=== PATIENT | male | born 1950 | race Caucasian/White ===

== ENCOUNTER → 2016-11-05 | Outpatient (CLI) | payer MEDICARE, MEDICAID ==
[~2016-11-05] MED LIST: AMBIEN5 MG PO; AMLODIPINE5 MG PO; ANAPROX DS550 MG PO; ATENOLOL100 MG; ATENOLOL100 MG PO; ATIVAN0.5 MG; ATIVAN0.5 MG PO; ATIVAN1 MG PO; CARBIDOPA PO; CHLORTHALIDONE25 MG PO; COLACE100 MG PO; COUMADIN5 M2; Depakote ER500 MG PO; ESIDREX,ORETIC,25 MG PO; EXELON4.6 MG/24 TD; LISINOPRIL10 MG PO; MIRALAX17 GM/DOSE PO; OMEGA 31000 MG; PAMELOR50 MG PO; PAROXETINE40 MG PO; PRINIVIL10 MG; RANITIDINE150 MG PO; REQUIP1 MG; REQUIP1 MG PO; SEROQUEL300 MG PO; SINEMET 25-2501 TAB; SINEMET PO; STALEVO PO; SYMMETREL100 MG PO; VICO10300 PO; VICODIN 500 MG-1 TAB PO; [UNRECOGNIZED DRUG - OTHER] PO
[2016-11-05 10:47] LABS: BASO # 0.1 10*3/uL (0.0-0.1); BASO % 1.3 % (0.0-1.0); EOS # 0.1 10*3/uL (0.0-0.4); EOS % 1.9 % (1.0-4.0); HEMATOCRIT 46.5 % (42.0-52.0); LYMPH # 2.7 10*3/uL (1.3-4.4); LYMPH % 37.6 % (27.0-41.0); MEAN CELL VOLUME 98.7 fl (80.0-94.0); MEAN CORPUSCULAR HGB CONC 34.4 g/dl (33.0-37.0); MONO # 0.7 10*3/uL (0.1-1.0); MONO % 9.5 % (3.0-9.0); NEUT # 3.6 10*3/uL (2.3-7.9); NEUT % 49.4 % (47.0-73.0); PLATELET COUNT AUTOMATED 188 10*3/uL (130-400); RED BLOOD COUNT 4.71 10*6/uL (4.50-5.90); RED CELL DISTRI WIDTH 12.2 % (0-14.5); WHITE BLOOD COUNT 7.2 10*3/uL (4.8-10.8)
[2016-11-05 11:15] LABS: ALBUMIN 3.8 gm/dl (3.1-4.5); ALKALINE PHOSPHATASE 65 U/L (45-117); BUN 21 mg/dl (7-24); CARBON DIOXIDE 34 mmol/L (21-32); CHLORIDE 101 mmol/L (98-107); CHOLESTEROL 165 mg/dL (<200); EST GLOM FILT AFRICAN AMERICAN > 60 ml/min; GLUCOSE 81 mg/dL (65-99); HDL CHOLESTEROL 43 mg/dl (40-60); LDL CHOLESTEROL 62 mg/dL (9-159); POTASSIUM 4.4 mmol/L (3.5-5.1); SGOT/AST 21 IU/L (3-35); SGPT/ALT 26 U/L (12-78); SODIUM 140 mmol/L (136-145); TOTAL PROTEIN 7.5 gm/dL (6.4-8.2); TRIGLYCERIDES 299 mg/dl (<150); VLDL CHOLESTEROL 60 mg/dL (6-40)
== END | disposition home or self-care (01) ==
LOC: LAB 10:30
PROVIDERS: Family Medicine
DX: Z12.5 Encounter for screening for malignant neoplasm of prostate (principal); Z00.01 Encounter for general adult medical examination with abnormal findings; I10 Essential (primary) hypertension; G20 Parkinson's disease; I48.1 Persistent atrial fibrillation; F25.9 Schizoaffective disorder, unspecified; E78.5 Hyperlipidemia, unspecified; E55.9 Vitamin D deficiency, unspecified; R06.02 Shortness of breath

== ENCOUNTER → 2016-11-16 | Outpatient (CLI) | payer MEDICARE, MEDICAID | END | disposition home or self-care (01) | LOC: US 10-07 09:30 | DX: Z13.6 Encounter for screening for cardiovascular disorders (principal) ==

== ENCOUNTER 2017-03-08 18:22 | Emergency (ER) | payer MEDICARE, MEDICAID ==
[~2017-03-08] VITALS: Wt 81.6 kg
== END 2017-03-08 20:31 | disposition home or self-care (01) ==
LOC: ED 18:22
DX: S20.212A Contusion of left front wall of thorax, initial encounter (principal); R03.0 Elevated blood-pressure reading, without diagnosis of hypertension; Z88.6 Allergy status to analgesic agent; Z88.8 Allergy status to other drugs, medicaments and biological substances; Z79.899 Other long term (current) drug therapy; W18.39XA Other fall on same level, initial encounter; Y93.89 Activity, other specified; Y92.89 Other specified places as the place of occurrence of the external cause; Y99.8 Other external cause status

== ENCOUNTER → 2017-08-25 | Outpatient (CLI) | payer MEDICARE, MEDICAID ==
[2017-08-25 08:47] LABS: ALBUMIN 3.7 gm/dl (3.1-4.5); ALKALINE PHOSPHATASE 67 U/L (45-117); BUN 23 mg/dl (7-24); CHLORIDE 102 mmol/L (98-107); CHOLESTEROL 151 mg/dL (<200); CREATININE 0.99 mg/dL (0.70-1.30); HDL CHOLESTEROL 39 mg/dl (40-60); LDL CHOLESTEROL 64 mg/dL (9-159); POTASSIUM 3.6 mmol/L (3.5-5.1); SGOT/AST 15 IU/L (3-35); SGPT/ALT 17 U/L (12-78); SODIUM 139 mmol/L (136-145); TOTAL PROTEIN 7.2 gm/dL (6.4-8.2); TRIGLYCERIDES 242 mg/dl (<150); VLDL CHOLESTEROL 48 mg/dL (6-40)
[2017-08-25 08:52] LABS: HEMATOCRIT 44.3 % (42.0-52.0); HEMOGLOBIN 15.7 g/dl (14.0-18.0); MEAN CELL VOLUME 96.3 fl (80.0-94.0); MEAN CORPUSCULAR HGB 34.1 pg (27.0-31.0); MEAN CORPUSCULAR HGB CONC 35.4 g/dl (33.0-37.0); MEAN PLATELET VOLUME 10.3 fl (9.6-12.3); RED BLOOD COUNT 4.6 10*6/uL (4.50-5.90); RED CELL DISTRI WIDTH 12.7 % (0-14.5); WHITE BLOOD COUNT 7.1 10*3/uL (4.8-10.8)
== END | disposition home or self-care (01) ==
LOC: LAB 07:58
PROVIDERS: Registered Nurse Flight
DX: I48.91 Unspecified atrial fibrillation (principal); E78.5 Hyperlipidemia, unspecified; M17.11 Unilateral primary osteoarthritis, right knee; E55.9 Vitamin D deficiency, unspecified

== ENCOUNTER 2018-09-07 19:21 | Inpatient (IN) | payer MEDICARE, MEDICAID ==
[~2018-09-07] VITALS: Ht 172.7 cm; Wt 84.0 kg
--- NOTE | ~2018-09-07 | O ---
[place], [place] OPERATIVE NOTE NAME: LYNDSAY FORBES [facility] #: [id number] UNIT #: [id number] ROOM: 511 DOCTOR: FINESSE VU MD BIRTHDATE: [birth year] DOS: 09/08/2018 PREOPERATIVE DIAGNOSIS: Acute appendicitis. POSTOPERATIVE DIAGNOSIS: Acute appendicitis. PROCEDURE: Laparoscopic appendectomy. SURGEON: Finesse Vu MD INSIDE SALES DIRECTOR: KARI. ANESTHESIA: General with endotracheal intubation. INDICATIONS: This is a 68-year-old gentleman admitted with right lower quadrant abdominal pain and was found to have acute appendicitis. It was decided to take the patient to the operating room for a laparoscopic appendectomy. The procedure and its complications were explained to the patient in detail preoperatively. Complications that were discussed included but were not limited to bleeding, infection, hematoma/seroma/abscess formation, prolonged postoperative pain, damage to lying vital structures, inadvertent injury to surrounding vital structures and he agreed to proceed. DESCRIPTION OF PROCEDURE: After identifying the patient, the patient was brought to the operating suite and laid in the supine position. After time-out procedure was called, general anesthesia was induced and a Acosta catheter was placed in urinary bladder. The parts were then painted and draped in the usual sterile fashion. An incision was made below the umbilicus. The skin and the subcutaneous tissue were incised in the line of the incision. The fascia was incised and 2 stay sutures with 0 Vicryl were taken on either side. Under direct vision, a left lower quadrant incision of 12 mm and a 5 mm incision was made in the suprapubic region and appropriate size ports were introduced. The patient was placed in a Trendelenburg right side up position. The appendix was found to be inflamed. It was dissected with blunt dissection from the surrounding structures and after the base was identified, it was stapled across with the help of an endovascular CORRINE stapler. The appendix was then placed in an EndoCatch bag and removed from the peritoneal cavity and sent for histopathological diagnosis. Hemostasis was confirmed and saline was used for irrigation. After hemostasis was confirmed again the suprapubic and the left lower quadrant ports were removed under direct vision and there was no bleeding seen. The umbilical port was also removed. The 2 stay sutures were tied together and an additional 0 Vicryl suture were taken to close the fascial incision. The edges of the skin were infiltrated with 1% plain lidocaine and approximated with the help of 4-0 Vicryl in a subcuticular running fashion. The Acosta catheter was removed. The patient was extubated uneventfully and brought back to the recovery room in a stable fashion. There were no complications. Dr. Finesse Vu, the attending surgeon, was present throughout the operating case. [place], [place] OPERATIVE NOTE NAME: LYNDSAY FORBES UNIT #: [id number] ROOM: [facility] DOCTOR: FINESSE VU MD BIRTHDATE: [birth year] Finesse Vu MD CM:OPRECORD:OPERATIVE NOTE 1027 [id number] FINESSE VU MD 09/08/18 1049 interface
[2018-09-07 19:21] VITALS: BP 133/73
[2018-09-07 20:21] LABS: HEMATOCRIT 44.2 % (42.0-52.0); HEMOGLOBIN 15.6 g/dl (14.0-18.0); MEAN CELL VOLUME 98.9 fl (80.0-94.0); MEAN CORPUSCULAR HGB 34.9 pg (27.0-31.0); MEAN CORPUSCULAR HGB CONC 35.3 g/dl (33.0-37.0); MEAN PLATELET VOLUME 9.9 fl (9.6-12.3); PLATELET COUNT AUTOMATED 175 10*3/uL (130-400); RED BLOOD COUNT 4.47 10*6/uL (4.50-5.90); RED CELL DISTRI WIDTH 12.4 % (0-14.5); WHITE BLOOD COUNT 8.1 10*3/uL (4.8-10.8)
[2018-09-07 20:48] LABS: TOTAL CELLS COUNTED 100 #CELLS
[2018-09-07 20:49] LABS: OVALOCYTES FEW; PLATELET SUFFICIENCY NORMAL (NORMAL); VACUOLATION OF NEUTROPHILS MODERATE
--- NOTE | 2018-09-07 20:49 | NUR ---
PT GIVEN URINAL AWARE WE NEED URINE SAMPLE
[2018-09-07 20:50] LABS: ALBUMIN 3.4 gm/dl (3.1-4.5); ALKALINE PHOSPHATASE 88 U/L (45-117); BUN 24 mg/dl (7-24); CHLORIDE 102 mmol/L (98-107); CREATININE 1.31 mg/dL (0.70-1.30); LIPASE 78 U/L (73-393); POTASSIUM 3.8 mmol/L (3.5-5.1); SGOT/AST 19 IU/L (3-35); SGPT/ALT 14 U/L (12-78); SODIUM 137 mmol/L (136-145); TOTAL PROTEIN 7.3 gm/dL (6.4-8.2)
[2018-09-07 20:56] LABS: BILIRUBIN NEGATIVE (NEGATIVE); BLOOD NEGATIVE (NEGATIVE); CLARITY SL CLOUDY (CLEAR); COLOR YELLOW (YELLOW); GLUCOSE NEGATIVE (NEGATIVE); KETONE TRACE (NEGATIVE); LEUKO ESTERASE NEGATIVE (NEGATIVE); NITRITE NEGATIVE (NEGATIVE); PH 5.5 (5.0-9.0); SPECIFIC GRAVITY >= 1.030 (1.005-1.030); UROBILINOGEN 0.2 E.U./dl (0.2-1.0)
[2018-09-07 21:13] LABS: BACTERIA 2+; MUCOUS TRACE; RBC 0-2 rbc/hpf (0-2)
--- NOTE | 2018-09-07 22:53 | NUR ---
DR. VAUGHN NOTIFIED OF L.A OF 2.1
[2018-09-07 23:05] VITALS: BP 120/64
[2018-09-07 23:40] VITALS: BP 116/70
--- NOTE | 2018-09-07 23:43 | NUR ---
A 68, admitted to , under the services of FIDEL Trinh DO with a diagnosis of APPENDICITIS. Chief complaint is TO ER WITH C/O RLQ ABD PAIN AND CHILLS LRM X3 DAYS AGOY. Patient arrived via CART from ER. Monitor applied. Initial assessment completed. Vital signs taken and recorded. FIDEL TRINH DO notified of admission to the unit. Orders received. See assessment for past medical history, medications and allergies. Patient and/or family oriented to unit. [facility]. visitation policy reviewed. Clothing/patient valuable form completed. MODESTO VILLATORO
[2018-09-07] MEDS ORDERED: ASPIRIN325 M2 PO (23:56)
[2018-09-07] MEDS ORDERED: POTASSIUM CHLO20 ME3 PO (23:58)
[2018-09-07] MEDS ORDERED: MIRALAX119 GM PO (23:59)
[2018-09-08] VITALS (11 sets, daily range): BP systolic 88–119; BP diastolic 49–85
--- NOTE | 2018-09-08 | NUR ---
CALLED DR. BAR AND NOTIFIED HIM OF HOME MEDICATIONS UP TO DATE.
[2018-09-08] MEDS ORDERED: VITAMIN D31000 UNI1 PO (00:01)
[2018-09-08] MEDS ORDERED: BACLOFEN5 MG PO (00:03)
[2018-09-08] MEDS ORDERED: RANITIDINE HCL150 M1 PO (00:05)
[2018-09-08] MEDS ORDERED: VITAMIN B-121000 MC2 PO (00:07)
[2018-09-08] MEDS ORDERED: NUPLAZID34 MG PO (00:08)
--- NOTE | 2018-09-08 01:25 | NUR ---
CALLED DR. BAR WITH CRITICAL LACTIC ACID 2.2 NO NEW ORDERS RECIEVED.
--- NOTE | 2018-09-08 05:20 | NUR ---
LYNDSAY FORBES [id number] Please refer to the physician's history and physical for past medical history, comorbid conditions, and allergies. Diagnosis: ACUTE APPENDICITIS Monroe Score: 19,LOW OR NO RISK WOUND DESCRIPTIONS: Location of the wound: left lower extremity Type of wound: skin tear Thickness: Partial Size: 1.0cm x 0.8cm x 0.1cm Tunneling: none Undermining: none Sinus Tract: none Presence of Exudate: none Amount: none Color: Red Odor: None Periwound Skin Appearance: erythema Wound edges: approximated Pain (associated with wound): none How does patient state this happened? pt stated he was fighting himself in his sleep and lost to acevedo to his toenails Location of the wound: right lower extremity Type of wound: scab Thickness: Partial Size: 0.6cm x 0.4cm x <0.1cm Tunneling: none Undermining: none Sinus Tract: none Presence of Exudate: none Amount: None Color: Red Odor: None Periwound Skin Appearance: Normal Wound edges: approxiamted Pain (associated with wound): none at time of assessment How does patient state this happened? pt stated he was fighting himself in his sleep and lost to acevedo to his toenails Surface the patient is resting on: Position Pro SKIN PREVENTION RECOMMENDATION: 1. Pressure redistribution support surface as appropriate 2. Elevate heels 3. Remove boots/TEDS every shift and reapply 4. Head of bed 30 degrees as tolerated 5. Assess nutrition and hydration 6. Manage moisture 7. Avoid the use of containment devices while in bed 8. Use absorptive products on surfaces limit layers of linens on bed 9. Turn and reposition every 1-2 hours in bed and every 1 hour in chair as tolerated 10. Weight shifts every 15 minutes while up in chair 11. Offloading with pillows or device to keep heels elevated off bed 12. Monitor skin at least every shift 13. Inspect under medical devices twice a day WOUND TREATMENT RECOMMENDATIONS: Consult podiatry for toenail care. Skin tear guidelines: Cleanse left lower extremity and right lower extremity with nss and apply sureprep around the wound hydrogel to wound bed and cover with optifoam gentle.
--- NOTE | 2018-09-08 06:23 | NUR ---
DR. WILLSON CALLED IN AND NOTIFIED OF PT. CONDITION. DR. WILLSON IS TAKING PATIENT TO SURGERY AROUND 0930.
[2018-09-08 06:52] LABS: BASO # 0.1 10*3/uL (0.0-0.1); BASO % 0.6 % (0.0-1.0); EOS # 0.1 10*3/uL (0.0-0.4); EOS % 0.7 % (1.0-4.0); LYMPH # 1.1 10*3/uL (1.3-4.4); LYMPH % 8.4 % (27.0-41.0); MEAN CELL VOLUME 99.3 fl (80.0-94.0); MEAN CORPUSCULAR HGB 33.9 pg (27.0-31.0); MEAN CORPUSCULAR HGB CONC 34.1 g/dl (33.0-37.0); MEAN PLATELET VOLUME 10.3 fl (9.6-12.3); MONO # 0.8 10*3/uL (0.1-1.0); MONO % 6.5 % (3.0-9.0); NEUT # 10.5 10*3/uL (2.3-7.9); NEUT % 83.5 % (47.0-73.0); PLATELET COUNT AUTOMATED 156 10*3/uL (130-400); RED BLOOD COUNT 4.13 10*6/uL (4.50-5.90); RED CELL DISTRI WIDTH 12.5 % (0-14.5); WHITE BLOOD COUNT 12.6 10*3/uL (4.8-10.8)
[2018-09-08 07:22] LABS: ALBUMIN 2.8 gm/dl (3.1-4.5); ALKALINE PHOSPHATASE 63 U/L (45-117); BUN 19 mg/dl (7-24); CHLORIDE 108 mmol/L (98-107); CREATININE 1.05 mg/dL (0.70-1.30); PHOSPHOROUS 2.6 mg/dL (2.5-4.9); POTASSIUM 3.4 mmol/L (3.5-5.1); SGOT/AST 15 IU/L (3-35); SGPT/ALT 20 U/L (12-78); SODIUM 141 mmol/L (136-145); TOTAL PROTEIN 6.4 gm/dL (6.4-8.2)
[2018-09-08 07:35] LABS: INTERNATIONAL NORM RATIO 1.2 (2.0-3.5)
--- NOTE | 2018-09-08 08:00 | NUR ---
PATIENT TRANSPORTED TO OR.
--- NOTE | 2018-09-08 10:05 | NUR ---
Dr. Patrick notified of wound care recommendations.
--- NOTE | 2018-09-08 10:30 | NUR ---
PT IN SURGERY WILL REVISIT LATER.
--- NOTE | 2018-09-08 11:21 | NUR ---
REPORT RECEIVED FROM SURGERY. 3 SMALL INCISION ON ABDOMEN WITH SKIN GLUE. ROJAS D/C'D. PRESCRIPTION ON CHART FOR NORCO WHEN DISCHARGED. PATIENT STABLE.
--- NOTE | 2018-09-08 11:50 | NUR ---
PATIENT RETURNED FROM OR.
--- NOTE | 2018-09-08 12:30 | NUR ---
DR WILLSON AT BEDSIDE WITH PATIENT. STATES THAT PATIENT IS OK TO BE DISCHARGED FROM HIS STANDPOINT. FOLLOW UP IN 2 WEEKS.
--- NOTE | 2018-09-08 13:55 | NUR ---
DR HENRY CALLED FOR PATIENT REQUEST FOR MIRALAX TO HELP MOVE BOWELS- PT TAKES MIRALAX AT HOME ALONG WITH [facility]. AWAITING ORDERS.
--- NOTE | 2018-09-08 14:18 | NUR ---
PT C/O OF ABDOMINAL PAIN RATED 6/10 ON 0/10. PT HAS MORHINE ORDERED FOR PAIN, PATIENT REFUSES AND WOULD LIKE TYLENOL. DR HENRY CALLED- AWAITING NEW ORDERS.
--- NOTE | 2018-09-08 14:28 | NUR ---
Museum Guide in to talk to patient. Patient states lives at HOME with . There are NO steps in the home. Physician: Peggy TAYLOR Pharmacy: [facility] health services: NONE Patient's level of ADLs: INDEPENDENT Patient has working utilities: YES DME: [facility] Follow-up physician's appointment after d/c: WILL BE MADE BY HOSPITALIST NURSE DIRECTOR ON DISCHARGE. Does patient want to access PORTAL?: NO Discharge plan PT STATES HE LIVES AT HOME WITH HIS AND SHE HELPS HIM WHEN HE NEEDS IT. DENIES THAT HE WILL HAVE NEEDS ON DISCHARGE. WILL BE DISCHARGED TO HOME WITH . STATES WILL TAKE HIM HOME. WILL CONTINUE TO FOLLOW.. MARÍA ELENA DUBOIS
--- NOTE | 2018-09-08 14:46 | NUR ---
PATIENT REQUESTING PAIN MEDICATION FOR ABDOMINAL PAIN 7/10 ON 0/10 SCALE. TYLENOL ADMINISTERED PRESCRIBED. WILL MONITOR FOR EFFECTIVENESS.
--- NOTE | 2018-09-08 15:15 | NUR ---
LAB CALLED WITH POSITIVE BLOOD CULTURES- GRAM POSITIVE COCCI IN PAIRS AND CHAINS. RESULT CALLED TO DR. HENRY- AWAITING NEW ORDERS.
--- NOTE | 2018-09-08 15:46 | NUR ---
PATIENT STATES THAT ABDOMINAL PAIN IS BETTER AFTER ADMINISTRATION OF TYLENOL, RATES IT 5/10 AT THIS TIME. WILL CONTINUE TO MONITOR.
--- NOTE | 2018-09-08 16:19 | NUR ---
DR KRISHNA CALLED WITH NEW CONSULT. DR ASENCIO SAID PATIENT WILL BE SEEN TOMORROW.
--- NOTE | 2018-09-08 17:34 | NUR ---
PATIENT REQUESTING PAIN MEDICATION AT THIS TIME, AGREED TO TAKE MORPHINE AT THIS TIME FOR ABD PAIN RATED 8/10 ON 0/10 SCALE. WILL MONITOR FOR EFFECTIVENESS.
--- NOTE | 2018-09-08 17:55 | NUR ---
PHARMACY CALLED TO VERIFY THAT NS/20 KCL AND VANCO ARE COMPATIBLE- [facility] STATES THEY ARE COMPATIBLE.
--- NOTE | 2018-09-08 18:34 | NUR ---
PATIENT STATES THAT MORPHINE WAS EFFECTIVE FOR ABDOMINAL PAIN. RATES 5/10 AT THIS TIME. WILL CONTINUE TO MONITOR.
--- NOTE | 2018-09-08 21:47 | NUR ---
TYLENOL GIVEN PER ORDER FOR ABD PAIN PER PT. REQUEST. REFUSED MORPHINE FOR FEAR OF MAKING HIM MORE CONSTIPATED.
--- NOTE | 2018-09-08 22:45 | NUR ---
TYLENOL BECOMING EFFECTIVE FOR ABD PAIN PER PT.
--- NOTE | 2018-09-08 22:56 | NUR ---
24 HR chart check completed.
[2018-09-09] VITALS: BP 110/60
--- NOTE | 2018-09-09 05:10 | NUR ---
SITTING UP AT SIDE OF BED. C/O PAIN RATED "10+" PER PATIENT OF ABD INCISION AREA LOWER ABD. MORPHINE GIVEN PER ORDER FOR PAIN. ENCOURAGE PATIENT TO GET UP AND MOVE AND PATIENT VOICED UNDERSTANDING OF NEED TO MOVE SAID HE WILL GET UP LATER THIS MORNING. PATIENT HELPED BACK INTO BED.
--- NOTE | 2018-09-09 06:10 | NUR ---
MORPHINE EFFECTIVE FOR ABD PAIN.
[2018-09-09 06:43] LABS: BASO % 0.4 % (0.0-1.0); EOS # 0.1 10*3/uL (0.0-0.4); EOS % 0.8 % (1.0-4.0); HEMOGLOBIN 12.3 g/dl (14.0-18.0); LYMPH # 0.5 10*3/uL (1.3-4.4); LYMPH % 7.1 % (27.0-41.0); MEAN CELL VOLUME 100.3 fl (80.0-94.0); MEAN CORPUSCULAR HGB 34.3 pg (27.0-31.0); MEAN CORPUSCULAR HGB CONC 34.2 g/dl (33.0-37.0); MEAN PLATELET VOLUME 10.3 fl (9.6-12.3); MONO # 0.8 10*3/uL (0.1-1.0); MONO % 10.2 % (3.0-9.0); NEUT # 6.2 10*3/uL (2.3-7.9); PLATELET COUNT AUTOMATED 120 10*3/uL (130-400); RED BLOOD COUNT 3.59 10*6/uL (4.50-5.90); RED CELL DISTRI WIDTH 12.7 % (0-14.5); WHITE BLOOD COUNT 7.6 10*3/uL (4.8-10.8)
--- NOTE | 2018-09-09 07:00 | NUR ---
REPORT OTBAINED FROM JOAQUÍN. PATIENT IS RESTIN IN BED, EYES CLOSED. NO DISTRESS NOTED, RESP ARE ERND ON ROOM AIR. BED IS LOCKED IN LOWEST POSITION, ALARM MAINTAINED. CALL LIGHT LEFT WITHIN REACH.
--- NOTE | 2018-09-09 07:01 | NUR ---
SLEEPING NO DISTRESS NOTED.
[2018-09-09 08:00] VITALS: BP 127/81
--- NOTE | 2018-09-09 09:51 | NUR ---
PATIENT MEDICATED WITH MORPHINE FOR C/O 6/10 PAIN TO ABDOMEN. WILL MONITOR
--- NOTE | 2018-09-09 10:51 | NUR ---
MORPHINE EFFECTIVE FOR ABDOMINAL PAIN
--- NOTE | 2018-09-09 11:00 | NUR ---
Occupational Therapy offered this date.Patient has been sitting up in chair for 2 hrs and just returned to bed. OTR to attempt at a later time. Thank you. Becka Rossi OTR/l
--- NOTE | 2018-09-09 11:01 | NUR ---
PHYSICAL THERAPY PAtient just returned to bed after sitting in chair for 2 hours. Will attempt later this date. Thank you for this referral. Marisel Durand,PT
[2018-09-09 11:25] LABS: ALBUMIN 2.5 gm/dl (3.1-4.5); ALKALINE PHOSPHATASE 61 U/L (45-117); BUN 18 mg/dl (7-24); CHLORIDE 109 mmol/L (98-107); CREATININE 1.05 mg/dL (0.70-1.30); POTASSIUM 3.6 mmol/L (3.5-5.1); SGOT/AST 24 IU/L (3-35); SGPT/ALT 31 U/L (12-78); SODIUM 141 mmol/L (136-145); TOTAL PROTEIN 5.6 gm/dL (6.4-8.2)
--- NOTE | 2018-09-09 11:30 | NUR ---
IVF DISCONTINUED ST THIS TIME. REMOVED FROM FLUID PER ORDERS.
[2018-09-09 12:00] VITALS: BP 130/70
--- NOTE | 2018-09-09 12:08 | NUR ---
PT CONTNUES TO DENY HOME NEEDS ON DISCHARGE. WILL CONTINUE TO FOLLOW.
--- NOTE | 2018-09-09 13:15 | NUR ---
PHYSICAL THERAPY Patient evaluated on 5, full evaluation to follow. Continue with PT as per plan of care with fall, PArkisnons, alarm, acute abdominal surgery ( lap appie 09/07/18) and acute debility precautions. Family and patient requests home for d/c planning. recommend home health RN and PT. PAtient is moderate complexity via chart review, tests and evaluation: 47368. Thank you for this referral. Marisel Candelaria,PT
--- NOTE | 2018-09-09 13:24 | NUR ---
Occupational Therapy evaluation completed on 5 with full eval to follow. Precautions include fall risk,parkinsons,chronic back pain,moderate complexity level 57721 per chart review, testing and evaluation. Recommend OT per POC and return home with and home health SN,OT,PT. Thank you for this referral. Becka Rossi OTR/L
[2018-09-09 16:00] VITALS: BP 119/74
--- NOTE | 2018-09-09 17:56 | NUR ---
PATIENT MEDICATED WITH MORPHINE FOR BACK/NECK PAIN 12/09. WILL TR
[2018-09-09 20:00] VITALS: BP 115/60
[2018-09-10] VITALS: BP 120/78
--- NOTE | 2018-09-10 03:39 | NUR ---
24 HR chart check completed.
[2018-09-10 06:03] LABS: BASO % 0.4 % (0.0-1.0); EOS # 0.1 10*3/uL (0.0-0.4); EOS % 1.1 % (1.0-4.0); HEMOGLOBIN 13.8 g/dl (14.0-18.0); LYMPH # 1.1 10*3/uL (1.3-4.4); LYMPH % 11.3 % (27.0-41.0); MEAN CORPUSCULAR HGB 34.8 pg (27.0-31.0); MEAN CORPUSCULAR HGB CONC 34.5 g/dl (33.0-37.0); MEAN PLATELET VOLUME 10.4 fl (9.6-12.3); MONO # 0.8 10*3/uL (0.1-1.0); MONO % 8.3 % (3.0-9.0); NEUT # 7.4 10*3/uL (2.3-7.9); NEUT % 78.5 % (47.0-73.0); PLATELET COUNT AUTOMATED 145 10*3/uL (130-400); RED BLOOD COUNT 3.96 10*6/uL (4.50-5.90); RED CELL DISTRI WIDTH 12.6 % (0-14.5); WHITE BLOOD COUNT 9.4 10*3/uL (4.8-10.8)
--- NOTE | 2018-09-10 07:15 | NUR ---
REPORT OBTAINED FROM JOAQUÍN. PATIENT IS RESTIN IN BED, EYES CLOSED. NO DISTRESS NOTED, RESP ARE ERND ON ROOM AIR. BED IS LOCKED IN LOWEST POSITION, ALARM MAINTAINED. CALL LIGHT LEFT WITHIN REACH.
[2018-09-10 08:00] VITALS: BP 100/60
--- NOTE | 2018-09-10 09:12 | NUR ---
PATIENT MEDICATED WITH MORPHINE FOR C/O 6/10 ABDOMINAL PAIN. WILL MONITOR
--- NOTE | 2018-09-10 09:20 | NUR ---
OT NOTE Pt was seen this A.M. 1:1 for 20 minute OT session. Upon arrival pt was sitting upright in the bedside chair. Pt identified by name and and had complaints of 10/10 abdominal pain. Sit to stand completed from chair level with modA X 2. Challenged pt's static standing tolerance needed for increased I in self care tasks and functional transfers. Pt was able to tolerate aprox 2-3 minutes at a time before sitting due to fatigue. Functional mobility completed to the bathroom and back with Jose Manuel and use of cane for UE support. Pt had multiple LOB forwards that required modA to correct. Throughout mobility pt required constant verbal prompts to widen base of support, take bug steps, advance foot placement, and keeping his eyes open. Pt required seated rest break throughout due to quick onset of fatigue. Pt was left sitting upright in bedside chair with call light in hand, tray table in place, and body alarm on for safety. Continue with rec D/C plan to home with home health. PATRICIA Cm/Kayla
--- NOTE | 2018-09-10 09:43 | NUR ---
PHYSICAL THERAPY informed consnet given, pt identified by name and .pt presented sitting in chair. STS and stand to sit multiple times modAx2, v/c safe hand placement to assist with ambulation. Walked 6ft x1, 20ft x2 cane and wire fence erector socks on, Jose Manuel. Walked another 20 ft x1, 40ft x1 Jose Manuel with cane and shoes on, pt demonstrated faster serafin with shoes on, but had narrow MARKUS throughout all gait, v/c given for larger steps and wider MARKUS. TUG test modA d/t L lateral LOB. 1min 2sec. Ended treatment pt sitting in chair, belongings and call light in reach, chair alarm on. 1:1 treatment with EMBEDDED SOFTWARE DEVELOPMENT ENGINEER 21min. ELIEL VICK EMBEDDED SOFTWARE DEVELOPMENT ENGINEER
--- NOTE | 2018-09-10 10:12 | NUR ---
MORPHINE EFFECTIVE FOR ABDOMINAL PAIN.
[2018-09-10 12:00] VITALS: BP 91/60
--- NOTE | 2018-09-10 15:33 | NUR ---
OCCUPATIONAL THERAPY CO-SIGN I approve of the Occupational Therapy notes written above. ROBERT NAVA OTR/Kayla
[2018-09-10 16:00] VITALS: BP 119/66
--- NOTE | 2018-09-10 16:10 | NUR ---
Hep Lock discontinued, RFA. Site symptomatic, PAINFUL. Pressure applied. Sterile dressing applied. STACI SOLORZANO
--- NOTE | 2018-09-10 16:11 | NUR ---
IV started left arm with #22 protective cath after 0 attempts. Site prepped with Chloroprep. Sterile dressing applied. Patient tolerated procedure well. STACI SOLORZANO
--- NOTE | 2018-09-10 16:12 | NUR ---
PATIENT MEDICATED WITH MORPHINE FOR C/O ABDOMINAL PAIN 11/09. WILL MONITOR
[2018-09-10] MEDS ORDERED: AUGMENTIN 875875 MG PO (16:29)
[2018-09-10] MEDS ORDERED: PERCOCET 5-3251 EACH PO (16:29)
--- NOTE | 2018-09-10 17:03 | NUR ---
INFORMED THAT PATIENT ALREADY HAD DISCHARGE SCRIPT FOR NORCO FROM . STATES TO RIP UP SCRIPT.
--- NOTE | 2018-09-10 17:12 | NUR ---
MORPHINE EFFECTIVE FOR ABDOMIAL PAIN.
--- NOTE | 2018-09-10 20:05 | NUR ---
Discharge instructions reviewed with patient/family. Patient receptive and verbalizes understanding. Follow-up care arranged. Written instructions given to patient/family. KAMLESH OAKES
--- NOTE | 2018-09-11 08:05 | NUR ---
PHYSICAL THERAPY CO-SIGN I approve of the Phyical Therapy notes written above. ANTONI RENTERIA PT
== END 2018-09-10 20:05 | disposition home or self-care (01) | DRG 341 ==
LOC: ED 19:21 → 5E 22:22 → EDHOLD 22:22 → 5E 22:39
PROVIDERS: Internal Medicine; Student in an Organized Health Care Education/Training Program; ADMIT Internal Medicine
PROC: 0DTJ4ZZ Resection of Appendix, Percutaneous Endoscopic Approach (ICD-10-PCS; principal; 2018-09-08)
PROC: 0HBRXZZ Excision of Toe Nail, External Approach (ICD-10-PCS; 2018-09-09)
DX: K35.30 Acute appendicitis with localized peritonitis, without perforation or gangrene (principal); N17.0 Acute kidney failure with tubular necrosis; E87.2 Acidosis; E80.6 Other disorders of bilirubin metabolism; G20 Parkinson's disease; M54.9 Dorsalgia, unspecified; G89.29 Other chronic pain; I10 Essential (primary) hypertension; I48.2 Chronic atrial fibrillation; F41.9 Anxiety disorder, unspecified; B35.1 Tinea unguium; B95.5 Unspecified streptococcus as the cause of diseases classified elsewhere; F32.9 Major depressive disorder, single episode, unspecified; Z88.5 Allergy status to narcotic agent; Z88.6 Allergy status to analgesic agent; Z88.8 Allergy status to other drugs, medicaments and biological substances; Z82.3 Family history of stroke; Z79.1 Long term (current) use of non-steroidal anti-inflammatories (NSAID); Z79.899 Other long term (current) drug therapy; Z90.49 Acquired absence of other specified parts of digestive tract; Z79.82 Long term (current) use of aspirin; Z82.49 Family history of ischemic heart disease and other diseases of the circulatory system

== ENCOUNTER → 2018-10-14 | Outpatient (CLI) | payer MEDICARE, MEDICAID ==
[~2018-10-14] MED LIST changes: +ASPIRIN325 M2 PO; +AUGMENTIN 875875 MG PO; +BACLOFEN5 MG PO; +MIRALAX119 GM PO; +NUPLAZID34 MG PO; +PERCOCET 5-3251 EACH PO; +POTASSIUM CHLO20 ME3 PO; +RANITIDINE HCL150 M1 PO; +VITAMIN B-121000 MC2 PO; +VITAMIN D31000 UNI1 PO
[2018-10-14 10:38] LABS: BASO # 0.1 10*3/uL (0.0-0.1); BASO % 1.1 % (0.0-1.0); EOS # 0.2 10*3/uL (0.0-0.4); EOS % 3.1 % (1.0-4.0); HEMATOCRIT 47.4 % (42.0-52.0); HEMOGLOBIN 16.2 g/dl (14.0-18.0); LYMPH # 1.8 10*3/uL (1.3-4.4); LYMPH % 29.7 % (27.0-41.0); MEAN CELL VOLUME 99.4 fl (80.0-94.0); MEAN CORPUSCULAR HGB CONC 34.2 g/dl (33.0-37.0); MEAN PLATELET VOLUME 9.8 fl (9.6-12.3); MONO # 0.6 10*3/uL (0.1-1.0); NEUT # 3.5 10*3/uL (2.3-7.9); NEUT % 56.8 % (47.0-73.0); PLATELET COUNT AUTOMATED 174 10*3/uL (130-400); RED BLOOD COUNT 4.77 10*6/uL (4.50-5.90); RED CELL DISTRI WIDTH 13.1 % (0-14.5); WHITE BLOOD COUNT 6.1 10*3/uL (4.8-10.8)
[2018-10-14 10:42] LABS: ALBUMIN 3.7 gm/dl (3.1-4.5); ALKALINE PHOSPHATASE 83 U/L (45-117); BILIRUBIN, DIRECT 0.2 mg/dL (0.0-0.2); BUN 22 mg/dl (7-24); CHLORIDE 103 mmol/L (98-107); CREATININE 1.07 mg/dL (0.70-1.30); POTASSIUM 3.9 mmol/L (3.5-5.1); SGOT/AST 20 IU/L (3-35); SGPT/ALT 28 U/L (12-78); SODIUM 141 mmol/L (136-145); TOTAL PROTEIN 7.5 gm/dL (6.4-8.2)
[2018-10-14 11:27] LABS: VITAMIN D, 25-HYDROXY 36.7 ng/mL (30-100)
== END | disposition home or self-care (01) ==
LOC: LAB 09:58
PROVIDERS: Psychiatry & Neurology Neurology
DX: G20 Parkinson's disease (principal); E55.9 Vitamin D deficiency, unspecified; R53.83 Other fatigue

== ENCOUNTER 2020-03-13 11:58 | Emergency (ER) | payer MEDICARE, MEDICAID ==
[~2020-03-13] VITALS: Ht 165.1 cm; Wt 79.4 kg
== END 2020-03-13 14:48 | disposition home or self-care (01) ==
LOC: ED 11:58
DX: S20.211A Contusion of right front wall of thorax, initial encounter (principal); S00.83XA Contusion of other part of head, initial encounter; Z88.6 Allergy status to analgesic agent; Z88.8 Allergy status to other drugs, medicaments and biological substances; Z79.899 Other long term (current) drug therapy; Z79.82 Long term (current) use of aspirin; W18.39XA Other fall on same level, initial encounter; Y93.89 Activity, other specified; Y92.89 Other specified places as the place of occurrence of the external cause; Y99.8 Other external cause status

== ENCOUNTER 2022-03-09 23:44 | Inpatient (IN) | payer MEDICARE, MEDICAID ==
[~2022-03-09] VITALS: Ht 168 cm; Wt 75.4 kg
[2022-03-10] VITALS (11 sets, daily range): BP systolic 92–134; BP diastolic 52–80
[2022-03-10 01:28] LABS: BASO # 0.1 10*3/uL (0.0-0.1); BASO % 1.1 % (0.0-1.0); EOS # 0.2 10*3/uL (0.0-0.4); EOS % 1.9 % (1.0-4.0); HEMATOCRIT 42.8 % (42.0-52.0); LYMPH # 1.3 10*3/uL (1.3-4.4); LYMPH % 15.3 % (27.0-41.0); MEAN CELL VOLUME 98.2 fl (80.0-94.0); MEAN CORPUSCULAR HGB 34.6 pg (27.0-31.0); MEAN CORPUSCULAR HGB CONC 35.3 g/dl (33.0-37.0); MONO # 0.8 10*3/uL (0.1-1.0); MONO % 9.1 % (3.0-9.0); NEUT # 6.1 10*3/uL (2.3-7.9); PLATELET COUNT AUTOMATED 181 10*3/uL (130-400); RED BLOOD COUNT 4.36 10*6/uL (4.50-5.90); RED CELL DISTRI WIDTH 12.3 % (0-14.5); WHITE BLOOD COUNT 8.5 10*3/uL (4.8-10.8)
[2022-03-10 01:41] LABS: ACT PARTIAL THROMBO TIME 27.9 SECONDS (20.0-32.1); INTERNATIONAL NORM RATIO 1.1 (2.0-3.5)
[2022-03-10 01:44] LABS: ALKALINE PHOSPHATASE 84 U/L (45-117); BUN 24 mg/dl (7-24); CHLORIDE 107 mmol/L (98-107); CREATININE 0.94 mg/dL (0.70-1.30); POTASSIUM 3.8 mmol/L (3.5-5.1); SGOT/AST 21 IU/L (3-35); SGPT/ALT 18 U/L (12-78); SODIUM 139 mmol/L (136-145); TOTAL PROTEIN 6.8 gm/dL (6.4-8.2)
[2022-03-10] MEDS ORDERED: FAMOTIDINE40 MG PO (03:42)
[2022-03-11] VITALS: BP 110/72
[2022-03-11 06:53] LABS: BASO % 0.3 % (0.0-1.0); EOS % 0.1 % (1.0-4.0); HEMATOCRIT 37.4 % (42.0-52.0); LYMPH # 1.1 10*3/uL (1.3-4.4); LYMPH % 10.4 % (27.0-41.0); MEAN CELL VOLUME 98.4 fl (80.0-94.0); MEAN CORPUSCULAR HGB 34.5 pg (27.0-31.0); MONO # 1.2 10*3/uL (0.1-1.0); NEUT # 7.8 10*3/uL (2.3-7.9); NEUT % 76.9 % (47.0-73.0); PLATELET COUNT AUTOMATED 152 10*3/uL (130-400); RED CELL DISTRI WIDTH 12.3 % (0-14.5); WHITE BLOOD COUNT 10.1 10*3/uL (4.8-10.8)
[2022-03-11 07:11] LABS: BUN 15 mg/dl (7-24); CHLORIDE 103 mmol/L (98-107); CREATININE 0.83 mg/dL (0.70-1.30); POTASSIUM 3.4 mmol/L (3.5-5.1); SODIUM 137 mmol/L (136-145)
[2022-03-11 08:00] VITALS: BP 122/62
[2022-03-11 09:45] LABS: VITAMIN D, 25-HYDROXY 49.1 ng/mL (30-100)
[2022-03-11 12:00] VITALS: BP 99/52
[2022-03-11 15:34] VITALS: BP 94/54
[2022-03-11 20:00] VITALS: BP 92/55
[2022-03-12 06:00] VITALS: BP 103/57
[2022-03-12 06:49] LABS: BASO % 0.4 % (0.0-1.0); EOS % 0.4 % (1.0-4.0); LYMPH # 1.6 10*3/uL (1.3-4.4); LYMPH % 15.8 % (27.0-41.0); MEAN CELL VOLUME 99.7 fl (80.0-94.0); MEAN CORPUSCULAR HGB 34.5 pg (27.0-31.0); MEAN CORPUSCULAR HGB CONC 34.6 g/dl (33.0-37.0); MEAN PLATELET VOLUME 10.3 fl (9.6-12.3); MONO # 1.2 10*3/uL (0.1-1.0); NEUT # 7.2 10*3/uL (2.3-7.9); NEUT % 70.9 % (47.0-73.0); PLATELET COUNT AUTOMATED 151 10*3/uL (130-400); RED BLOOD COUNT 3.51 10*6/uL (4.50-5.90); RED CELL DISTRI WIDTH 12.7 % (0-14.5); WHITE BLOOD COUNT 10.2 10*3/uL (4.8-10.8)
[2022-03-12 10:00] VITALS: BP 82/60
[2022-03-12 12:00] VITALS: BP 104/67
[2022-03-12 16:00] VITALS: BP 117/65
[2022-03-12 20:00] VITALS: BP 113/59
[2022-03-13] VITALS: BP 94/59
[2022-03-13 07:53] LABS: BASO # 0.1 10*3/uL (0.0-0.1); BASO % 0.6 % (0.0-1.0); EOS # 0.2 10*3/uL (0.0-0.4); EOS % 1.8 % (1.0-4.0); HEMATOCRIT 36.3 % (42.0-52.0); LYMPH # 1.9 10*3/uL (1.3-4.4); LYMPH % 20.5 % (27.0-41.0); MEAN CELL VOLUME 101.7 fl (80.0-94.0); MEAN CORPUSCULAR HGB 34.2 pg (27.0-31.0); MEAN CORPUSCULAR HGB CONC 33.6 g/dl (33.0-37.0); MEAN PLATELET VOLUME 10.1 fl (9.6-12.3); MONO # 1.1 10*3/uL (0.1-1.0); MONO % 11.8 % (3.0-9.0); NEUT # 5.9 10*3/uL (2.3-7.9); PLATELET COUNT AUTOMATED 133 10*3/uL (130-400); RED BLOOD COUNT 3.57 10*6/uL (4.50-5.90); RED CELL DISTRI WIDTH 12.5 % (0-14.5)
[2022-03-13 08:00] VITALS: BP 111/56
[2022-03-13] MEDS ORDERED: ATIVAN1 MG PO (11:28)
[2022-03-13] MEDS ORDERED: AMANTADINE HCL100 M2 PO (11:28)
[2022-03-13] MEDS ORDERED: ATIVAN0.5 MG PO (11:28)
[2022-03-13] MEDS ORDERED: HYDROCODONE-AC1 EAC1 PO (11:28)
[2022-03-13 12:00] VITALS: BP 117/69
== END 2022-03-13 13:36 | DRG 522 ==
LOC: ED 23:44 → EDHOLD 03-10 01:58 → 5E 03-10 01:58 → EDHOLD 03-10 02:19 → 5E 03-10 02:27
PROVIDERS: Family Medicine; Registered Nurse; Student in an Organized Health Care Education/Training Program; ADMIT Family Medicine; ATTEND Family Medicine
PROC: 0SRS0JZ Replacement of Left Hip Joint, Femoral Surface with Synthetic Substitute, Open Approach (ICD-10-PCS; 2022-03-10)
PROC: 0HBRXZZ Excision of Toe Nail, External Approach (ICD-10-PCS; principal; 2022-03-11)
PROC: 0HBRXZZ Excision of Toe Nail, External Approach (ICD-10-PCS; 2022-03-11)
PROC: 0HBRXZZ Excision of Toe Nail, External Approach (ICD-10-PCS; 2022-03-11)
PROC: 0HBRXZZ Excision of Toe Nail, External Approach (ICD-10-PCS; 2022-03-11)
PROC: 0HBRXZZ Excision of Toe Nail, External Approach (ICD-10-PCS; 2022-03-11)
PROC: 0HBRXZZ Excision of Toe Nail, External Approach (ICD-10-PCS; 2022-03-11)
PROC: 0HBRXZZ Excision of Toe Nail, External Approach (ICD-10-PCS; 2022-03-11)
PROC: 0HBRXZZ Excision of Toe Nail, External Approach (ICD-10-PCS; 2022-03-11)
PROC: 0HBRXZZ Excision of Toe Nail, External Approach (ICD-10-PCS; 2022-03-11)
PROC: 0HBRXZZ Excision of Toe Nail, External Approach (ICD-10-PCS; 2022-03-11)
DX: S72.012A Unspecified intracapsular fracture of left femur, initial encounter for closed fracture (principal); E44.1 Mild protein-calorie malnutrition; G20 Parkinson's disease; Z20.822 Contact with and (suspected) exposure to COVID-19; I48.91 Unspecified atrial fibrillation; F41.9 Anxiety disorder, unspecified; G89.29 Other chronic pain; M54.9 Dorsalgia, unspecified; R73.9 Hyperglycemia, unspecified; F32.A Depression, unspecified; B35.1 Tinea unguium; R29.6 Repeated falls; D53.9 Nutritional anemia, unspecified; E87.6 Hypokalemia; W18.39XA Other fall on same level, initial encounter; Z88.1 Allergy status to other antibiotic agents; Z88.8 Allergy status to other drugs, medicaments and biological substances; Z88.6 Allergy status to analgesic agent; Z90.49 Acquired absence of other specified parts of digestive tract; Z82.3 Family history of stroke; Z84.89 Family history of other specified conditions; Y93.89 Activity, other specified; Y92.098 Other place in other non-institutional residence as the place of occurrence of the external cause; Y99.8 Other external cause status; Z68.26 Body mass index [BMI] 26.0-26.9, adult